=== PATIENT | female | born 1955 | race African-American/Black ===

== ENCOUNTER 2020-09-05 11:30 | Inpatient (IN) | payer BC ==
[~2020-09-05] VITALS: Ht 177.8 cm; Wt 136.7 kg
[2020-09-05 14:51] LABS: Basophils # (auto) 0.1 10 ^3/uL (0-0.2); Eosinophils # (auto) 0.1 10 ^3/uL (0-0.8); Eosinophils % (auto) 1.3 % (0.0-7.0); Hemoglobin 14.4 g/dL (12.2-16.2); Lymphocytes # (auto) 2.3 10 ^3/uL (0.4-5.4); Lymphocytes % (auto) 29.4 % (10.0-50.0); Mean Corpuscular Hemoglobin 30.4 pg (28.0-32.0); Mean Corpuscular Hgb Conc. 33.4 g/dL (32.0-36.0); Mean Corpuscular Volume 90.9 fL (80.0-100.0); Monocytes # (auto) 0.5 10 ^3/uL (0-1.3); Monocytes % (auto) 6.2 % (0.0-12.0); Neutrophils # (auto) 4.9 10 ^3/uL (1.6-8.6); Neutrophils % (auto) 62.1 % (37.0-80.0); Nucleated Red Blood Cells % 0.1 %; Platelet Count (auto) 440 10^3/uL (140-450); Red Blood Cells 4.74 10^6/uL (4.0-5.20); Red Cell Distribution Width 13.8 % (11.8-14.3); White Blood Cell 7.9 10^3/uL (4.4-10.8)
[2020-09-05] MEDS ORDERED: CLINDAMYCIN 600MG IV 50 ML IV ONE (15:00)
[2020-09-05 15:07] LABS: INR 0.95 (0.9-1.15); Partial Thromboplastin Time 22.5 sec (23.0-31.2)
[2020-09-05 15:09] LABS: Albumin 3.4 g/dL (3.4-5.0); Calcium 9.1 mg/dL (8.5-10.1); Potassium 3.8 mmol/L (3.5-5.1)
[2020-09-05 15:13] LABS: BUN/Creatinine Ratio 21.2; Bilirubin, Total 0.3 mg/dL (0.2-1.0); Total Protein 7.7 g/dL (6.4-8.2)
[2020-09-05] MEDS ORDERED: MORPHINE SULF INJ 2 MG/ML SYRINGE 1ML IV PRN ×2 (15:45→16:00)
[2020-09-05] MEDS ORDERED: NITROGLYCERIN 0.4 MG SL TAB SL PRN (15:45)
[2020-09-05] MEDS ORDERED: LACTULOSE 20Gm/30ML SOLN PO PRN (16:00)
[2020-09-05] MEDS ORDERED: PROMETHAZINE HCL 25 MG/ML 1ML IV PRN (16:00)
[2020-09-05] MEDS ORDERED: DEXTROSE (50%) 50ML SYRG IV PRN (16:00)
[2020-09-05] MEDS ORDERED: ACETAMINOPHEN 500 MG TAB PO PRN (16:00)
[2020-09-05] MEDS ORDERED: cefTRIAXone 1GM/50ML D5W 50 ML IV ONE (16:00)
[2020-09-05] MEDS: SODIUM CHLORIDE 0.9% 1,000 ML IV SCH (17:31)
[2020-09-05] MEDS: ENOXAPARIN SOD 40 MG/0.4 ML SYRINGE SC SCH (17:32)
[2020-09-05] MEDS: ACCU-CHEK COMFORT CURVE STRIP VI SCH ×2 (18:30→22:00)
[2020-09-05] MEDS: InsuLIN REG 1unit/0.01ml Soln (100units/ml) SC SCH ×2 (18:31→22:47)
[2020-09-05] MEDS: CLINDAMYCIN 600MG IV 50 ML IV SCH (22:00)
[2020-09-05] MEDS ORDERED: TEMAZEPAM 15 MG CAP PO PRN (22:00)
[2020-09-05] MEDS: FAMOTIDINE 20 MG TAB PO SCH (22:00)
[2020-09-05 22:23] VITALS: BP 151/72
[2020-09-06] MEDS: SODIUM CHLORIDE 0.9% 1,000 ML IV SCH ×3 (01:27→21:28)
[2020-09-06] MEDS: ACCU-CHEK COMFORT CURVE STRIP VI SCH ×6 (01:46→19:36)
[2020-09-06] MEDS: InsuLIN REG 1unit/0.01ml Soln (100units/ml) SC SCH ×7 (01:46→23:35)
[2020-09-06 05:47] VITALS: BP 138/56
[2020-09-06] MEDS: CLINDAMYCIN 600MG IV 50 ML IV SCH ×3 (05:58→21:28)
--- NOTE | 2020-09-06 07:30 | NUR ---
Opening Shift Note Assumed care of patient, awake and alert. No S/S of distress/SOB or pain on room air. Instructed on POC and to call for assist PRN, will continue to monitor for changes Q1hr and PRN. Bed in low and locked position, rails up x2, no-slip socks on.
--- NOTE | 2020-09-06 08:00 | NUR ---
NO WOUND PHOTO TAKEN PER TECHNOLOGIST DEVELOPMENT, [facility] IS STILL UNAVAILABLE ON [facility] FOR PHOTOS, WILL OBTAIN PHOTO AND PLACE WOUND CONSULT.
[2020-09-06 09:45] VITALS: BP_SYST 147; BP_SYST 159; BP_DIAS 94; BP_DIAS 97
[2020-09-06] MEDS: ENOXAPARIN SOD 40 MG/0.4 ML SYRINGE SC SCH (09:48)
[2020-09-06] MEDS: FAMOTIDINE 20 MG TAB PO SCH ×2 (09:48→21:27)
[2020-09-06] MEDS: cefTRIAXone 1GM/50ML D5W 50 ML IV SCH (09:48)
--- NOTE | 2020-09-06 10:00 | NUR ---
NO [facility] AVAILABLE ON FLOOR WOUND CONSULT PLACED
[2020-09-06] MEDS ORDERED: METOPROLOL TARTRATE 50 MG TAB PO ONE (12:00)
--- NOTE | 2020-09-06 12:00 | NUR ---
WOUND CARE NOTE: IN TO SEE PATIENT AT THIS TIME PER WOUND CARE CONSULT REQUEST. PATIENT ADMITTED TO [facility] WITH DIAGNOSIS OF LEFT FOOT PAIN. CURRENT [facility] SCORE IS 18. PATIENT STATES THAT SHE WORE SOME ILL FITTING SHOES, AND WAS RENDERED WITH EDEMA, ECCHYMOSIS TO THE LEFT # [address] CHAUHAN HAS SEEN THE PATIENT IN CONSULTATION, AND WILL BE PERFORMING SURGERY IN THE NEAR FUTURE ON THIS WOUND. PATIENT REQUIRES NO DRESSING AT THIS TIME, THERE IS NO OPEN OR DRAINING AREAS NOTED. ELEVATED FOOT UP ONTO PILLOW FOR EDEMA CONTROL. SKIN/WOUND CARE PLAN IMPLEMENTED. RECOMMEND: ALL RECOMMENDATIONS WILL BE DEFERRED TO DR. CHAUHAN AT THIS POINT. NO FURTHER WOUND CARE MONITORING IS NEEDED AT THIS TIME. Addendum: 09/06/20 at 1855 by Love Huber RN Amended: Links added.
--- NOTE | 2020-09-06 12:01 | NUR ---
DR Alejandro MATHIS AT BEDSIDE ORDERS ADDED FOR BP AND CARDIOLOGY CONSULT FOR LEFT FEMORAL STENOSIS WITH GERMAN
[2020-09-06 13:00] VITALS: BP 160/85
--- NOTE | 2020-09-06 14:05 | NUR ---
URINE SPECIMEN COLLECTED
--- NOTE | 2020-09-06 14:10 | NUR ---
IV removal/IV insertion IV DC'd to left AC with clean sterile technique, catheter fully intact due to pain at site. Pressure dressing applied to site. Patient tolerated well. IV access obtained, via clean sterile technique by inserting 22 gauge catheter at right forearm after 2 attempts. IV secured properly. No trauma to site. Patient tolerated well.
[2020-09-06 14:14] LABS: Urine WBC None Seen /hpf (0 - 5)
[2020-09-06 14:30] LABS: Urine Bacteria NONE SEEN /hpf (None Seen); Urine Blood Negative /uL (Negative); Urine Specific Gravity 1.016 (1.001-1.035)
[2020-09-06 17:37] VITALS: BP 156/92
--- NOTE | 2020-09-06 19:00 | NUR ---
Opening Shift Note Assumed care of patient, awake and alert. No S/S of distress/SOB or pain. Bed locked in lowest position, side rails up X2, call light within reach. Instructed on POC and to call for assist PRN, will continue to monitor for changes Q1hr and PRN.
[2020-09-06 20:00] VITALS: BP 168/85
[2020-09-06] MEDS: METOPROLOL TARTRATE 50 MG TAB PO SCH (21:28)
[2020-09-06 22:00] VITALS: BP 141/77
--- NOTE | 2020-09-06 22:29 | NUR ---
ROUNDS: PATIENT RESTING IN BED ON THE LOW FOWLERS POSITION. NO SIGNS OF DISTRESS/SOB.
[2020-09-07] MEDS: ACCU-CHEK COMFORT CURVE STRIP VI SCH ×6 (00:20→20:03)
[2020-09-07] MEDS: traMADol HCL 50 MG TAB PO PRN (01:11)
--- NOTE | 2020-09-07 03:31 | NUR ---
ROUNDS: PATIENT ASLEEP IN THE LOW FOWLERS POSITION. NO SIGNS OF DISTRESS/ SOB AT THIS TIME.
[2020-09-07] MEDS: InsuLIN REG 1unit/0.01ml Soln (100units/ml) SC SCH ×5 (04:09→19:36)
[2020-09-07 05:00] VITALS: BP 151/83
[2020-09-07] MEDS: CLINDAMYCIN 600MG IV 50 ML IV SCH ×3 (05:04→21:39)
--- NOTE | 2020-09-07 07:40 | NUR ---
Opening Shift Note Assumed care of patient, awake, alert and oriented x 4. Respirations are even and non labored on room air. No S/S of distress/SOB or pain. Bed is in the lowest and locked position with side rails up x 2 and call light within reach. Instructed on POC and to call for assist PRN, will continue to monitor for changes Q1hr and PRN.
[2020-09-07] MEDS: cefTRIAXone 1GM/50ML D5W 50 ML IV SCH (08:27)
[2020-09-07] MEDS: SODIUM CHLORIDE 0.9% 1,000 ML IV SCH ×2 (08:28→18:00)
[2020-09-07 09:00] VITALS: BP 132/75
[2020-09-07] MEDS: METOPROLOL TARTRATE 50 MG TAB PO SCH ×2 (10:00→21:38)
[2020-09-07] MEDS: ENOXAPARIN SOD 40 MG/0.4 ML SYRINGE SC SCH (10:00)
[2020-09-07] MEDS: FAMOTIDINE 20 MG TAB PO SCH ×2 (10:00→21:38)
[2020-09-07] MEDS ORDERED: IOHEXOL 350 MG/ML 100ML IJ ONE (12:32)
[2020-09-07 12:50] VITALS: BP 126/71
[2020-09-07 17:00] VITALS: BP 131/79
[2020-09-07 20:00] VITALS: BP 164/91
[2020-09-07 22:11] VITALS: BP 164/91
[2020-09-08] MEDS: ACCU-CHEK COMFORT CURVE STRIP VI SCH ×7 (00:07→23:35)
[2020-09-08] MEDS: InsuLIN REG 1unit/0.01ml Soln (100units/ml) SC SCH ×7 (00:08→23:43)
--- NOTE | 2020-09-08 01:00 | NUR ---
ROUNDS PATIENT RESTING IN THE LOW FOWLERS POSITION . NO SIGNS OF DISTRESS/SOB
--- NOTE | 2020-09-08 03:00 | NUR ---
PATIENT AMBULATED SELF TO RESTROOM.
[2020-09-08] MEDS: SODIUM CHLORIDE 0.9% 1,000 ML IV SCH ×3 (04:00→23:35)
[2020-09-08 05:00] VITALS: BP 131/83
[2020-09-08] MEDS: CLINDAMYCIN 600MG IV 50 ML IV SCH ×3 (05:29→21:19)
--- NOTE | 2020-09-08 08:20 | NUR ---
Opening Note Assumed care of patient, she is A & O x4, no s/s of distress. Patient is comfortable. Would like to get her consultations done so she can go home. Bed is in lowest, locked position, call light within reach, patient sitting at side of bed eating breakfast.
--- NOTE | 2020-09-08 08:25 | NUR ---
Asked Balmorhea Karine to re-call Podiatry Consult to Dr. Alan. No notes placed about consultation since 09/06. Will reassess. She informed me she will call at 0900.
[2020-09-08] MEDS: cefTRIAXone 1GM/50ML D5W 50 ML IV SCH (08:34)
[2020-09-08 09:00] VITALS: BP 110/60
[2020-09-08] MEDS: FAMOTIDINE 20 MG TAB PO SCH ×2 (10:04→21:18)
[2020-09-08] MEDS: METOPROLOL TARTRATE 50 MG TAB PO SCH ×2 (10:04→21:19)
[2020-09-08] MEDS: ENOXAPARIN SOD 40 MG/0.4 ML SYRINGE SC SCH (10:04)
[2020-09-08] MEDS ORDERED: INSU100I4 SC (10:18)
[2020-09-08] MEDS ORDERED: CYAN-17 PO (10:19)
[2020-09-08] MEDS ORDERED: OMEG100062 PO (10:19)
[2020-09-08] MEDS ORDERED: MULT-552 PO (10:19)
[2020-09-08] MEDS ORDERED: CHOL20004 PO (10:19)
[2020-09-08] MEDS ORDERED: EMPA1TAB PO (10:19)
[2020-09-08] MEDS ORDERED: INSLANTI SC (10:19)
[2020-09-08] MEDS ORDERED: ICOS1CAP OR (10:19)
[2020-09-08] MEDS ORDERED: ASPI325T4 PO (10:19)
[2020-09-08] MEDS ORDERED: ATO40T PO (10:19)
--- NOTE | 2020-09-08 12:10 | NUR ---
Dr. Hood at bedside.
--- NOTE | 2020-09-08 12:20 | NUR ---
Dr. Alan at bedside. Procedure discussed with patient. Orders received, read back and verified.
--- NOTE | 2020-09-08 12:37 | NUR ---
Nutrition Assessment Note please see attached link fro complete assessment [employer] needs ABW [id number] kcals (17-20 kcal/kgABW),Est Protein needs: 103-123 gms/day (1.0-1.2 gm/kgABW r/t wounds). Will continue to monitor and reassess prn. Addendum: 09/08/20 at [address] Amended: Links added.
[2020-09-08 13:00] VITALS: BP 141/89
--- NOTE | 2020-09-08 14:32 | NUR ---
Assessment Patient is a 65-year-old female, patient is alert and oriented. Patient cognitive abilities are intact. Patient stated that she can do all ADLs and ambulate independently. 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 Patient stated that she lives with her and children. Patient stated that she will return home post discharge. Patient stated that one of her children will provide transportation post discharge. Patient stated that she has home supplies for her diabetes care. Patient stated declined information on Advance Directive or POA forms. Discharge planning: Patient will return home and resume homecare for monitoring her diabetes. Patient has no post discharge needs identified at this moment. Addendum: 09/08/20 at 1434 by ALMA GUZMAN Amended: Links added.
[2020-09-08 14:55] LABS: Basophils # (auto) 0.1 10 ^3/uL (0-0.2); Basophils % (auto) 1.4 % (0.0-2.0); Eosinophils # (auto) 0.2 10 ^3/uL (0-0.8); Eosinophils % (auto) 3.3 % (0.0-7.0); Hematocrit 41.7 % (36.0-46.0); Hemoglobin 13.7 g/dL (12.2-16.2); Lymphocytes # (auto) 3.1 10 ^3/uL (0.4-5.4); Lymphocytes % (auto) 48.4 % (10.0-50.0); Mean Corpuscular Hemoglobin 29.6 pg (28.0-32.0); Mean Corpuscular Hgb Conc. 32.8 g/dL (32.0-36.0); Mean Corpuscular Volume 90.2 fL (80.0-100.0); Monocytes # (auto) 0.6 10 ^3/uL (0-1.3); Monocytes % (auto) 8.7 % (0.0-12.0); Neutrophils # (auto) 2.4 10 ^3/uL (1.6-8.6); Neutrophils % (auto) 38.2 % (37.0-80.0); Nucleated Red Blood Cells % 0.1 %; Platelet Count (auto) 432 10^3/uL (140-450); Red Blood Cells 4.63 10^6/uL (4.0-5.20); Red Cell Distribution Width 13.7 % (11.8-14.3); White Blood Cell 6.4 10^3/uL (4.4-10.8)
[2020-09-08 15:24] LABS: INR 0.99 (0.9-1.15); Partial Thromboplastin Time 27.8 sec (23.0-31.2)
[2020-09-08 17:15] VITALS: BP 151/79
--- NOTE | 2020-09-08 17:26 | NUR ---
PICC LINE NURSE AT BEDSIDE.
--- NOTE | 2020-09-08 18:29 | NUR ---
PICC line placement Patient educated on need for PICC line placement. All risks and benefits explained and all questions and concerns addressed prior to procedure. Noted past medical history and allergies with no contraindications. INR and Plt counts within acceptable range. 4fr PICC line inserted via LEFT CEPHALIC vein using [employer] US and Tip Location System. Sterile technique with maximum barrier precautions utilized. Blood return obtained from each of THE SINGLE lumen and flushed easily with NS using proper technique. PICC secured with Stat-lock; biodisc and occlusive dressing applied. Stat portable chest x-ray obtained for PICC tip placement. *Baseline Arm Circumference 50CM. PICC lot #[id number]. INTERNAL LENGTH 41CM EXTERNAL LENGTH 0CM
[2020-09-08] MEDS ORDERED: LIDOCAINE 1% (LOCAL ANESTH.) PF 5ml SDV ID ONE (18:30)
[2020-09-08] MEDS: SODIUM CHLOR 0.9% PF (SALINE LOCK) 10ML VIAL/SYR IV SCH (21:19)
[2020-09-08 23:43] VITALS: BP 161/82
--- NOTE | 2020-09-09 00:43 | NUR ---
ROUNDS PATIENT ASLEEP IN THE LOW FOWLERS POSITION. NO SIGNS OF SOB/ DISTRESS.
[2020-09-09] MEDS: InsuLIN REG 1unit/0.01ml Soln (100units/ml) SC SCH ×5 (04:00→22:08)
[2020-09-09] MEDS: ACCU-CHEK COMFORT CURVE STRIP VI SCH ×5 (04:05→22:06)
[2020-09-09] MEDS: CLINDAMYCIN 600MG IV 50 ML IV SCH ×3 (04:51→22:06)
[2020-09-09 06:07] VITALS: BP 153/74
--- NOTE | 2020-09-09 07:40 | NUR ---
Opening Note Assumed care of patient, she is A & O x4, no s/s of distress. Patient is NPO at this time, CHG bath completed. Patient is scheduled for surgery at this time. Will continue to monitor.
[2020-09-09] MEDS: METOPROLOL TARTRATE 50 MG TAB PO SCH ×2 (07:57→22:07)
[2020-09-09] MEDS: SODIUM CHLORIDE 0.9% 1,000 ML IV SCH ×2 (07:58→20:00)
[2020-09-09] MEDS: SODIUM CHLOR 0.9% PF (SALINE LOCK) 10ML VIAL/SYR IV SCH ×2 (07:58→22:06)
[2020-09-09] MEDS: cefTRIAXone 1GM/50ML D5W 50 ML IV SCH (07:58)
--- NOTE | 2020-09-09 08:25 | NUR ---
Patient to Pre-op. Handoff given to Constanza SCHAEFER. Patient alert, no s/s of distress at this time.
[2020-09-09] MEDS: ENOXAPARIN SOD 40 MG/0.4 ML SYRINGE SC SCH (08:52)
[2020-09-09] MEDS: FAMOTIDINE 20 MG TAB PO SCH ×2 (08:52→22:07)
[2020-09-09 09:00] VITALS: BP 136/75
[2020-09-09] MEDS ORDERED: ROPIVACAINE 0.5% (5MG/ML) 20ML AMPULE IJ ONE (09:41)
[2020-09-09] MEDS ORDERED: ceFAZolin 1GM VL ONE (09:41)
[2020-09-09] MEDS ORDERED: MIDAZOLAM HCL 1MG/1ML-2 ML VIAL ONE (10:53)
[2020-09-09] MEDS ORDERED: fentaNYL CITRATE 100 MCG/2 ML VL ONE (10:53)
[2020-09-09] MEDS ORDERED: PROPOFOL 10 MG/ML 20 ML IV ONE (10:54)
[2020-09-09] MEDS ORDERED: MEPERIDINE HCL (25 MG/ML) 1ML VIAL ONE (10:54)
[2020-09-09] MEDS ORDERED: DexAMETHasone SOD PHOS 10MG/1ML VIAL INJ ONE (10:54)
[2020-09-09] MEDS ORDERED: HYDROmorphone HCL 2 MG/ML VL IV PRN (11:00)
[2020-09-09] MEDS ORDERED: ONDANSETRON HCL 4 MG/2 ML VIAL IV PRN (11:00)
[2020-09-09] MEDS ORDERED: ACCU-CHEK COMFORT CURVE STRIP VI ONE (11:00)
[2020-09-09] MEDS ORDERED: LABETALOL HCL 5 MG/ML 4ML SYRINGE IV PRN (11:00)
[2020-09-09] MEDS ORDERED: MIDAZOLAM HCL 1MG/1ML-2 ML VIAL IV PRN (11:00)
[2020-09-09] MEDS ORDERED: ePHEDrine SULFATE 50 MG/ML AMP IV PRN (11:00)
--- NOTE | 2020-09-09 12:40 | NUR ---
Patient returned from Surgery. Diet resumed, per Dr. Hood. Patient is A & O x4, no s/s of distress. Dressing to the left foot is clean dry and intact, dorsalis pedis is 2+, will continue to monitor.
[2020-09-09 13:00] VITALS: BP 107/70
--- NOTE | 2020-09-09 15:55 | NUR ---
Spoke to Orthopedic office regarding Post-op shoe. They will be getting back to me this evening.
--- NOTE | 2020-09-09 16:01 | NUR ---
Patient at procedure Addendum: 09/09/20 at 1601 by Araecli Pena RN Amended: Links added.
[2020-09-09 17:00] VITALS: BP 127/78
--- NOTE | 2020-09-09 17:00 | NUR ---
Patient was given post-op shoe. Fitted and placed by ortho to left foot.
--- NOTE | 2020-09-09 19:15 | NUR ---
Opening Shift Note Assumed care of patient, awake and alert. No S/S of distress/SOB or pain. Instructed on POC and to call for assist PRN, will continue to monitor for changes Q1hr and PRN.
--- NOTE | 2020-09-09 20:00 | NUR ---
IV removal IV DC'd with clean sterile technique, catheter fully intact. Pressure dressing applied to site. Patient tolerated well. NOTE:
[2020-09-09] MEDS: traMADol HCL 50 MG TAB PO PRN (20:07)
[2020-09-09 22:00] VITALS: BP 130/72
[2020-09-10] MEDS: ACCU-CHEK COMFORT CURVE STRIP VI SCH ×7 (00:04→23:43)
[2020-09-10] MEDS: InsuLIN REG 1unit/0.01ml Soln (100units/ml) SC SCH ×7 (00:05→23:43)
--- NOTE | 2020-09-10 01:00 | NUR ---
Patient asleep. no SOB no pain. will continue to monitor.
--- NOTE | 2020-09-10 04:00 | NUR ---
ROUNDS. DENIES ANY NEEDS. WILL CONTINUE TO MONITOR
[2020-09-10] MEDS: CLINDAMYCIN 600MG IV 50 ML IV SCH ×3 (05:43→21:39)
[2020-09-10 05:45] VITALS: BP 142/71
[2020-09-10] MEDS: SODIUM CHLORIDE 0.9% 1,000 ML IV SCH ×2 (06:00→13:39)
--- NOTE | 2020-09-10 07:20 | NUR ---
Closing Shift event Patient alert and oriented. No signs of distress and no SOB. endorse to AM nurse.
[2020-09-10 08:00] VITALS: BP 119/60
[2020-09-10 09:00] VITALS: BP 119/60
[2020-09-10] MEDS: METOPROLOL TARTRATE 50 MG TAB PO SCH ×2 (09:22→21:39)
[2020-09-10] MEDS: cefTRIAXone 1GM/50ML D5W 50 ML IV SCH (09:22)
[2020-09-10] MEDS: ENOXAPARIN SOD 40 MG/0.4 ML SYRINGE SC SCH (09:23)
[2020-09-10] MEDS: FAMOTIDINE 20 MG TAB PO SCH ×2 (09:23→21:38)
[2020-09-10] MEDS: SODIUM CHLOR 0.9% PF (SALINE LOCK) 10ML VIAL/SYR IV SCH ×2 (11:28→21:39)
[2020-09-10 13:00] VITALS: BP 161/81
[2020-09-10] MEDS: traMADol HCL 50 MG TAB PO PRN (13:39)
--- NOTE | 2020-09-10 14:30 | NUR ---
D/C Planning Per social service consult for home health IV abx. 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 Senior Market Research Analyst Shania will complete IV abx. Bedside nurse to follow up with DORIS Jauregui.
[2020-09-10 17:00] VITALS: BP 152/73
--- NOTE | 2020-09-10 20:30 | NUR ---
PICC line dressing changed
[2020-09-10 22:00] VITALS: BP 150/98
[2020-09-11] MEDS: SODIUM CHLORIDE 0.9% 1,000 ML IV SCH ×2 (02:00→12:12)
[2020-09-11] MEDS: ACCU-CHEK COMFORT CURVE STRIP VI SCH ×4 (03:56→16:00)
[2020-09-11] MEDS: traMADol HCL 50 MG TAB PO PRN (03:56)
[2020-09-11] MEDS: InsuLIN REG 1unit/0.01ml Soln (100units/ml) SC SCH ×4 (03:57→16:00)
[2020-09-11 05:00] VITALS: BP 147/47
[2020-09-11] MEDS: CLINDAMYCIN 600MG IV 50 ML IV SCH ×2 (05:27→14:19)
--- NOTE | 2020-09-11 05:32 | NUR ---
pt is refusing ivf all night stated just antibiotics
--- NOTE | 2020-09-11 07:22 | NUR ---
closing note endorsed care to day RN , no distress noted at this time
[2020-09-11] MEDS: cefTRIAXone 1GM/50ML D5W 50 ML IV SCH (08:22)
[2020-09-11] MEDS: SODIUM CHLOR 0.9% PF (SALINE LOCK) 10ML VIAL/SYR IV SCH (08:30)
[2020-09-11 09:00] VITALS: BP 148/69
[2020-09-11] MEDS: FAMOTIDINE 20 MG TAB PO SCH (09:43)
[2020-09-11] MEDS: ENOXAPARIN SOD 40 MG/0.4 ML SYRINGE SC SCH (09:44)
[2020-09-11] MEDS: METOPROLOL TARTRATE 50 MG TAB PO SCH (09:44)
--- NOTE | 2020-09-11 10:24 | NUR ---
1000 09/11/[address]axed [address] [facility] at [phone] face sheet, order for home IV ABx for 6 weeks through PICC line, Rocephin 1 g IV daily and Clindamycin 300 mg IV every 8 hours both for 6 weeks, H/P, labs, meds, authorization number via [employer] ([id number]). Pending review and delivery of supplies to patient.
[2020-09-11 13:00] VITALS: BP 112/69
[2020-09-11 13:16] VITALS: BP 148/69
--- NOTE | 2020-09-11 14:25 | NUR ---
1400 09/11/20 - Contacted by [employer] field logistics coordinator Thong who stated she will contact patient and IV supplies will be delivered between 2000 -2200PM today. Contacted [facility] at [phone] to ask if they serviced the [place] area and was told they do. Faxed face sheet, order for home health for wound care to [facility] at [phone], also faxed to [facility] orders for home health. Pending review, acceptance, and authorization. Nurse Tamar informed of all info as stated above.
--- NOTE | 2020-09-11 14:42 | NUR ---
Nutrition Followup Note Wt 136.7kg Pt was alert and oriented at time of rounds. Pt reports appetite is good, denies any GI issues. Pt with a good appetite aeb pt with 81% of po intake per Rn note [employer] needs ABW [id number] kcals (17-20 kcal/kgABW),Est Protein needs: 103-123 gms/day (1.0-1.2 gm/kgABW r/t wounds). Will continue to monitor and reassess prn. Labs: Pt with no new labs, POC GLUC 194H BM: Pt with no BM noted per Rn note Skin: BS 21 low risk, full details in client care coordinator note. PES Altered nutrition related lab values r.t current chronic medical conidtion aeb elev BUN, A1C hyperglcyemia Decreased nutrient needs r/t adiposity aeb pt`s high BMI of 43.9 kgm2 Comments 1) refer to CDE on DC 2) consider MVI/C bid 3) continue current plan of care Expected Outcomes/Goals: pt will not gain any more wt pt will have better healing skin pt will have improved labs F?u mod 3-5 days
--- NOTE | 2020-09-11 15:36 | NUR ---
1500 09/11/2020 - Contacted by [facility] global coordinator Cesar who stated they have not contract with [facility] or [facility] for out of area services. Can not accept care of patient at this time.
[2020-09-11 17:00] VITALS: BP 144/76
--- NOTE | 2020-09-11 19:18 | NUR ---
Discharge instructions given as ordered. Encourage to follow up with PMD as instructed. All questions and concerns addressed. Patient verbalized understanding. Patient discharged home with picc line. Telemetry unit returned to ICU. Patient understands to follow up with case planner Shania tomorrow for home health information. Patient taken to vehicle via wheelchair with all personal belongings, accompanied by staff. No distress noted at time of departure.
== END 2020-09-11 19:18 | disposition home health service (06) | DRG 617 ==
LOC: ER 11:30 → TELE 11:31 → TELE-WESTW 21:17
PROVIDERS: ADMIT Internal Medicine; ATTEND Family Medicine
PROC: 02HV33Z Insertion of Infusion Device into Superior Vena Cava, Percutaneous Approach (ICD-10-PCS; principal; 2020-09-08)
PROC: 0Y6Y0Z0 Detachment at Left 5th Toe, Complete, Open Approach (ICD-10-PCS; 2020-09-09)
DX: E11.69 Type 2 diabetes mellitus with other specified complication (principal); L03.116 Cellulitis of left lower limb; Z68.41 Body mass index [BMI] 40.0-44.9, adult; M86.179 Other acute osteomyelitis, unspecified ankle and foot; E11.42 Type 2 diabetes mellitus with diabetic polyneuropathy; E11.21 Type 2 diabetes mellitus with diabetic nephropathy; E11.621 Type 2 diabetes mellitus with foot ulcer; E11.65 Type 2 diabetes mellitus with hyperglycemia; E66.01 Morbid (severe) obesity due to excess calories; E78.5 Hyperlipidemia, unspecified; I10 Essential (primary) hypertension; L97.529 Non-pressure chronic ulcer of other part of left foot with unspecified severity; S91.109A Unspecified open wound of unspecified toe(s) without damage to nail, initial encounter; I70.202 Unspecified atherosclerosis of native arteries of extremities, left leg; X58.XXXA Exposure to other specified factors, initial encounter; Y93.89 Activity, other specified; Y92.89 Other specified places as the place of occurrence of the external cause; Y99.8 Other external cause status; Z83.3 Family history of diabetes mellitus; Z82.49 Family history of ischemic heart disease and other diseases of the circulatory system; Z88.2 Allergy status to sulfonamides
CPT/HCPCS: 36415; 36569; 71045; 73700; 75635; 80053; 81001; 82962; 83036; 83605; 83735; 85025; 85610; 85652; 85730; 86850; 86900; 86901; 87040; 87081; 93005; 93926; G0378; J0690; J0696; J1100; J1815; J2250; J2704; J3490